=== PATIENT | male | born 1965 | race Caucasian/White ===

== ENCOUNTER → 2017-07-24 | Outpatient (CLI) | payer OTHER ==
[2017-07-24 13:33] LABS: HCT 48.3 % (39.0-53.0); HGB 16.3 gm/dL (13.0-17.5); MCH 29.7 pg (25.0-35.0); MCHC 33.8 g/dL (31.0-37.0); MCV 87.9 fL (80.0-100.0); Mean Platelet Volume 7.6; Platelet Count 211 k/uL (150-450); RDW 13.6 % (11.5-15.5); WBC 3.9 k/uL (3.8-10.6)
[2017-07-24 13:43] LABS: ALT 39 U/L (21-72); AST 21 U/L (17-59); Albumin 4.3 g/dL (3.5-5.0); Alkaline Phosphatase 53 U/L (38-126); Anion Gap 10 mmol/L; Blood Urea Nitrogen 17 mg/dL (9-20); Calcium 9.5 mg/dL (8.4-10.2); Carbon Dioxide 28 mmol/L (22-30); Chloride 102 mmol/L (98-107); Glucose 94 mg/dL (74-99); Potassium 4.5 mmol/L (3.5-5.1); Sodium 140 mmol/L (137-145); Total Bilirubin 0.8 mg/dL (0.2-1.3)
[2017-07-24 13:56] LABS: INR 1.1 (<1.2); Partial Thromboplastin Time 25.1 sec (22.0-30.0); Prothrombin Time 10.6 sec (9.0-12.0)
[2017-07-24 13:58] LABS: Appearance,Urine Clear (Clear); Bilirubin,Urine Negative (Negative); Blood,Urine Negative (Negative); Color,Urine Yellow; Glucose,Urine (UA) Negative (Negative); Ketones,Urine Negative (Negative); Leukocyte Esterase,Urine Trace (Negative); Mucus,Urine Rare /hpf; Nitrite,Urine Negative (Negative); Protein,Urine Trace (Negative); RBC,Urine 5 /hpf (0-5); Specific Gravity,Urine 1.017 (1.001-1.035); Urobilinogen,Urine <2.0 mg/dL (<2.0); WBC,Urine 11 /hpf (0-5)
== END | disposition home or self-care (01) ==
LOC: LABPAT 12:44
PROVIDERS: ATTEND Orthopaedic Surgery Sports Medicine
DX: Z01.818 Encounter for other preprocedural examination (principal); Z01.812 Encounter for preprocedural laboratory examination; M17.11 Unilateral primary osteoarthritis, right knee; R00.1 Bradycardia, unspecified
CPT/HCPCS: 36415; 80053; 81001; 85027; 85610; 85730; 87070; 93005

== ENCOUNTER 2017-08-06 11:47 | Inpatient (IN) | payer OTHER ==
[2017-07-31 10:42] VITALS: BMI 25.5
[~2017-08-06 11:47] MED LIST: ACETAMINOPHEN TAB 500 MG TAB PO ONE; DEXAMETHASONE SOD PHOSPHATE 10 MG/ML 1 ML VIAL IV ONE; HYDROmorphone 0.5 MG/0.5 ML SYRINGE IVP PRN; LIDOCAINE 1% 20 ML VIAL (10MG/ML) FOR IV START INTRADERMA PRN; MELOXICAM 7.5 MG TAB PO ONE; ONDANSETRON 4 MG/2 ML VIAL IVP ONE; ONDANSETRON 4 MG/2 ML VIAL IVP PRN; SCOPOLAMINE 1.5MG/72HR PATCH TRANSDERM ONE; TRANEXAMIC ACID 1,000 MG in SODIUM CHLORIDE 0.9% 50 ML IVPB ONE; ceFAZolin IN SWFI 2 GM/20 ML SYRINGE IVP ONE
[2017-08-06] MEDS: LACTATED RINGERS 1,000 ML IV SCH ×4 (13:31→21:05)
[2017-08-06] MEDS ORDERED: LIDOCAINE 1% 20 ML VIAL (10MG/ML) FOR IV START INTRADERMA ONE (13:31)
[2017-08-06] MEDS ORDERED: PROPOFOL 10 MG/ML 20 ML VIAL IV ONE (14:33)
[2017-08-06] MEDS ORDERED: MIDAZOLAM 2 MG/2 ML VIAL ONE (14:33)
[2017-08-06] MEDS ORDERED: LIDOCAINE 1% INJ 10MG/ML (20 ML MDV) ONE (14:33)
[2017-08-06] MEDS ORDERED: ceFAZolin 3,000 MG in SODIUM CHLORIDE 0.9% IRRIGATIO 3,000 ML IRRIGATION ONE (14:33)
[2017-08-06] MEDS ORDERED: fentaNYL (PF) 50 MCG/ML 2 ML AMP ONE (14:33)
[2017-08-06] MEDS ORDERED: TRANEXAMIC ACID 1,000 MG/10 ML VIAL ONE (14:33)
[2017-08-06] MEDS ORDERED: SODIUM CHLORIDE 0.9% 100 ML BAG ONE (14:33)
[2017-08-06] MEDS: ROPIVACAINE 246.25 MG, EPINEPHrine 0.5 MG, KETOROLAC 30 MG, cloNIDine HCL/PF 80 MCG, WA... MISCELLANE ONE ×10 (15:01→15:35)
[2017-08-06] MEDS ORDERED: LACTATED RINGERS 1,000 ML IV ONE (15:05)
[2017-08-06] MEDS ORDERED: MORPHINE SULFATE 2 MG/ML SYRINGE IVP PRN (16:26)
[2017-08-06] MEDS ORDERED: diphenhydrAMINE 50 MG/ML 1 ML VIAL IVP PRN (16:26)
[2017-08-06] MEDS ORDERED: NALBUPHINE 10 MG/ML AMPUL IV PRN (16:26)
[2017-08-06] MEDS ORDERED: NALOXONE 0.4 MG/ML 1 ML VIAL IV PRN (16:26)
[2017-08-06] MEDS ORDERED: PROMETHAZINE INJ 6.25 MG in SODIUM CHLORIDE 0.9% 50 ML IVPB PRN (16:26)
[2017-08-06] MEDS ORDERED: DIAZEPAM 5 MG TAB PO PRN (16:45)
[2017-08-06] MEDS ORDERED: TEMAZEPAM 15 MG CAP PO PRN (16:45)
[2017-08-06] MEDS ORDERED: BISACODYL 10 MG SUPP RECTAL PRN (16:45)
[2017-08-06] MEDS ORDERED: MAGNESIUM HYDROXIDE 2,400 MG/10 ML CUP PO PRN (16:45)
[2017-08-06] MEDS ORDERED: HYDROmorphone 0.5 MG/0.5 ML SYRINGE IVP PRN ×3 (16:45)
[2017-08-06] MEDS ORDERED: ACETAMINOPHEN TAB 325 MG TAB PO PRN (16:45)
[2017-08-06] MEDS ORDERED: NA PHOS,M-B/NA PHOS,DI-BA 133 ML ENEMA RECTAL PRN (16:45)
[2017-08-06] MEDS ORDERED: HYDROcodone/APAP 7.5-325MG 1 EACH TAB PO PRN (16:45)
[2017-08-06] MEDS ORDERED: traMADol 50 MG TAB PO PRN (16:45)
[2017-08-06] MEDS ORDERED: hydrOXYzine PAMOATE 25 MG CAP PO PRN (16:45)
--- NOTE | 2017-08-06 17:26 | XR ---
EXAMINATION TYPE: XR knee limited RT DATE OF EXAM: 08/06/2017 COMPARISON: NONE HISTORY: Postop TECHNIQUE: 2 views FINDINGS: There is a right knee prosthesis. Components appear in anatomic position. IMPRESSION: No complicating process seen.
--- NOTE | 2017-08-06 18:02 | OP ---
OPERATIVE REPORT DATE OF PROCEDURE: 08/06/2017. SURGEON: Lance Jimenez MD. CELL BIOLOGIST: Shahzad RUSSELL. PREOPERATIVE DIAGNOSIS: Right knee osteoarthrosis. POSTOPERATIVE DIAGNOSIS: Right knee osteoarthrosis. OPERATION: Right total knee arthroplasty. ANESTHESIA: Spinal with sedation. ESTIMATED BLOOD LOSS: 100 mL. TOURNIQUET TIME: 56 minutes at 250 mmHg. COMPLICATIONS: None apparent. DRAINS: None. DISPOSITION: Postanesthesia care unit. INDICATIONS: Timur is a very pleasant 52-year-old male with longstanding history of right knee pain. History and physical examination are consistent with advanced right knee osteoarthrosis. He has been through significant nonoperative management up to this point. Further treatment options were discussed and he has decided to go forward with right total knee arthroplasty. The risks of procedure were discussed with him in detail. These risks include, but are not limited to risk of infection, nerve damage, bleeding, pain and risk of deep vein thrombosis which could lead to fatal pulmonary embolism. There is also risk of loosening of the implant which could require revision operation. The patient understands these risks. All of his questions were answered to his satisfaction. An appropriate informed consent was obtained. PROCEDURE: The patient was identified in the preoperative holding area. Surgical site was marked by both the patient myself. He was given 2 g of Ancef IV for prophylactic purposes. He was then transferred to the operative suite, was placed supine on the operative table. Spinal anesthetic was then administered and dosed per the anesthesia department without apparent complication. Examination under anesthesia was then performed. The patient was 2-3 degrees shy of full extension. He had 110 degrees of flexion. The medial collateral ligament, lateral collateral ligament and posterior cruciate ligaments were stable. Tourniquet was then placed high on the right upper thigh well-padded in preparation for surgery. The patient's right lower extremity was then prepped and draped in usual sterile fashion. Standard surgical pause undertaken to ensure that we were operating the correct site and that appropriate preop antibiotics were given. All staff in the room were in agreement and we proceeded. The outlines of the patella were marked surgical pen. A planned 12 cm vertical incision centered over the patella was marked surgical pen. Leg was then exsanguinated with an Esmarch dressing. The knee was then flexed and the tourniquet was inflated to 250 mmHg. The total tourniquet time for the procedure was 56 minutes at 250 mmHg. The incision was then made with a 10 blade scalpel. Dissection was carried down sharply overlying fascia. Great care was taken to minimize the skin flaps. The knee was then exposed using a standard medial parapatellar approach. A small cuff of quadriceps tendon was left for suturing. He was in a bit of varus preoperatively. A standard medial release was then made. Superficial medial collateral ligament was dissected off the bone around the posterior aspect of the proximal tibia. The medial meniscus was then excised as well. The lateral meniscus was also released anteriorly. The leg was then externally rotated. The patella was everted. The knee was flexed. The retractors were then placed to protect the collateral ligaments. I then proceeded to remove the infrapatellar fat pad. This was excised sharply tangentially with the fibers of the patellar tendon. I then proceeded to remove the peripheral osteophytes. This was done with a rongeur. I then proceed with the distal femoral resection. He did have near full extension. A planned 9 mm resection was then done. The femoral canal was then entered in the midline of the femur approximately 10 mm anterior to the origin of the posterior cruciate ligament. The isabelle was then advanced down the center of the femur and placed intramedullary. Based on preop radiographs, the angle between the anatomic and mechanical axis of the femur was approximately 4-5 degrees. The valgus angle of the distal femoral cutting guide was then set at 4 degrees for the right knee. The distal femoral cutting guide was then advanced over the intramedullary isabelle. This was seated firmly against the femur. I then as mentioned planned to take 9 mm off the distal femur. The cutting block was then secured onto the femur with pins. The jig was then removed. The distal femoral cut was made through the slot of the block. The pins were then removed. The distal femoral cut and the cutting block was removed. The accuracy of the distal femoral cuts was checked with 2 flat bars. I then proceed to femoral sizing. Posterior referencing sizing guide was held firmly against the resected distal surface of the femur. Posterior condyles were resting on the posterior plane of the guide. The sizing stylus was then placed onto the anterior femur. The size was measured as a size 11. I then assessed for femoral rotation. Plan was for 3 degrees of external rotation. 3 degrees of external rotation was placed onto the jig. These holes were then marked. I then confirmed the rotation by 3 separate methods. This was done using epicondylar axis as well as Whitesides line and posterior referencing. It was deemed that the external rotation was proper. I then went forward placing the femoral cutting block. This placed over the previously placed pin holes. The Jung wing was then placed onto the anterior slots to ensure that we would not notch the anterior femur with the anterior femoral cut. I then proceeded with the anterior femoral cut. This was flush with the anterior cortex of the femur. The posterior cuts were then made followed by the anterior chamfer cut, then the posterior chamfer cut. The cutting block was then removed. Throughout the resection, the collateral ligaments were protected with retractors. I then placed a trial size 11 femur. It fit very nice medial-lateral and fit flush with the distal end of the femur. The drill holes were then made. I then proceeded with the tibial cut. Planned for cruciate retaining knee. The guide was placed and set for varus valgus and for slope. The height was set for approximate 2 mm resection from the medial tibial plateau which was the lower side. I was happy with the alignment and the amount of resection. The cutting block was then pinned to the proximal tibia. The alignment isabelle was removed. The proximal tibia was resected with a reciprocating saw. Again this was done with retractors protecting the collateral ligaments as well as the posterior cruciate ligament. I then proceeded to evaluate the flexion extension gaps. A 10 mm block was placed. The flexion-extension gaps were equal. I then proceeded with resection of posterior osteophytes. Very minimal posterior osteophytes. This was done using a curved osteotome. This resected the posterior osteophytes and posterior capsule stripping was done off the posterior aspect of the femur at that time. The osteophytes were removed. I then proceeded with resection of patella. The thickness of patella was measured using the caliper. The thickness was 22 mm. The thickness of the anticipated patellar dome was taken into account. Resection was then performed and confirmed to be equal in 4 quadrants using a caliper. Approximately 14 mm of bone remained after the resection. A 35 x 9 mm standard patellar trial was then placed. The holes were then drilled. The trial was then placed. I then proceeded with sizing the tibial plate. A size G tibial plate fit very nicely. I then placed trial femur with the tibial tray and patellar button. A 10 mm trial tibial insert was also placed. The components fit very nicely. He had full flexion extension. The extension and flexion gaps were equal and stable to both varus and valgus stress. The patella tracked appropriately. The tibial tray rotation was marked with a Bovie. This was externally rotated properly. I then proceeded with tibial preparation. First drilled the femoral holes and removed femoral component. The tibial tray was then set for proper external rotation as well as mediolateral placement onto the tibia. It was then pinned into place. I then proceeded with punching the keel. I then decided to proceed with cementing of all of our components. The knee was thoroughly irrigated with sterile saline solution via pulse lavage. The lateral geniculate artery was identified and cauterized. All blood was removed from the bone of the tibia femur and patella with pulse lavage. I then proceed with cementing. Two packs of antibiotic bone cement were prepared on the back table by the non morse intercept technician. I then proceed with cementing the tibia first. The cement was impacted into the keel as well as deeply seated in the bone. A 2nd coat of cement was then placed. The tibia was then impacted into place. Excess cement was removed with Shanique's and jokers. I then proceed with cementing the femoral component. Femoral component was also cemented using standard technique. Excess cement was removed. A 10 mm trial insert was then placed into the knee. It was brought into full extension with a constant axial load placed until the cement hardened. The patellar component was then cemented. This was held firmly with a compressive device until the cement had dried. When the cement dried, the knee was taken out of extension. All excess cement was removed from around the prosthesis. I then trialed the knee with a 10 mm insert. The flexion-extension gaps were appropriate. The knee was stable. It came into full extension. I decided to go forward with a 10 mm cross-linked cruciate-retaining tibial insert. Polyethylene was then placed on the tibial tray and locked. The knee was reduced. The knee was again further irrigated with sterile saline solution with antibiotic added. The tourniquet was then deflated. Total tourniquet time for the procedure was 56 minutes at 250 mmHg. The final components were Sade persona size 11 cruciate- retaining femoral component, a size G tibial tray, a 10 mm cruciate retaining polyethylene insert and a 35 x 9 mm patella. I then proceeded with closure. Again, the knee was thoroughly irrigated. The quadriceps tendon and the medial retinaculum were reapproximated with #2 Ethibond suture. The extensor mechanism was then closed with a running #2 Quill suture. Subcutaneous tissue was then closed with 2-0 Vicryl interrupted suture. The skin was closed with a running 3-0 Quill suture. Dermabond was applied to the incision. Sterile compressive dressing was then applied. All sponge, needle counts were deemed correct prior to closure. The patient tolerated the procedure without apparent complication. He was transferred to recovery room in stable condition. MMODL / IJN: [id number] /
[2017-08-06] MEDS ORDERED: traZODone HCL 50 MG TAB PO SCH (21:00)
[2017-08-06] MEDS ORDERED: SENNOSIDES-DOCUSATE SODIUM 1 EACH TAB PO SCH (21:00)
[2017-08-06] MEDS: GABAPENTIN 400 MG CAP PO SCH (21:05)
[2017-08-06] MEDS: FAMOTIDINE 20 MG TAB PO SCH (21:05)
[2017-08-06] MEDS: ASPIRIN 325 MG TAB PO SCH (21:06)
[2017-08-06] MEDS: ceFAZolin IN SWFI 2 GM/20 ML SYRINGE IVP SCH (23:36)
[2017-08-07 07:46] LABS: Basophils % (A) 0 %; Eosinophils # (A) 0.1 k/uL (0-0.7); Eosinophils % (A) 1 %; HCT 38.2 % (39.0-53.0); Lymphocytes # (A) 0.9 k/uL (1.0-4.8); Lymphocytes % (A) 11 %; MCH 29.6 pg (25.0-35.0); MCHC 33.3 g/dL (31.0-37.0); Mean Platelet Volume 7.5; Monocytes # (A) 0.5 k/uL (0-1.0); Monocytes % (A) 7 %; Neutrophils # (A) 6.4 k/uL (1.3-7.7); Neutrophils % (A) 80 %; Platelet Count 182 k/uL (150-450); RBC 4.29 m/uL (4.30-5.90); RDW 12.6 % (11.5-15.5)
[2017-08-07 07:48] LABS: HGB 12.7 gm/dL (13.0-17.5)
[2017-08-07] MEDS: HYDROcodone/APAP 7.5-325MG 1 EACH TAB PO PRN ×2 (08:20→14:17)
[2017-08-07] MEDS: ASPIRIN 325 MG TAB PO SCH (08:22)
[2017-08-07] MEDS: FAMOTIDINE 20 MG TAB PO SCH (08:22)
[2017-08-07] MEDS: GABAPENTIN 400 MG CAP PO SCH (08:23)
--- NOTE | 2017-08-07 08:33 | P.PN ---
Subjective Progress Note Date: 08/07/17 Principal diagnosis: Primary osteoarthritis right knee. Status post total right knee arthroplasty. This is a 52-year-old male who is status post total right knee arthroplasty. He has had difficulty voiding since surgery. He was straight cathed last evening for total of 750 ml. He did have a Duramorph spinal. He has not yet been up with physical therapy. He states that he is having minimal pain today. Objective - Vital Signs Vital signs: Vital Signs Temp 98.4 F 08/07/17 01:47 Pulse 100 08/07/17 01:47 Resp 18 08/07/17 05:00 BP 121/66 08/07/17 01:47 Pulse Ox 95 08/07/17 01:47 Intake & Output 08/06/17 08/07/17 08/07/17 18:59 06:59 18:59 Intake Total 1601 1950 Output Total 100 550 Balance 1501 1400 Weight 95.254 kg Intake: IV 1601 Intake, IV Titration 1150 Amount Lactated Ringers 1,000 ml 1150 @ 100 mls/hr IV .Q10H [facility] Rx#:[id number] Oral 800 Output: Urine 550 Straight 550 Estimated Blood Loss 100 Other: # Voids 500 - Exam This is a pleasant 52-year-old male in no acute distress. He is alert and oriented 3. Exam of the lower extremities reveals that his dressing is clean, dry and intact. He has full foot and ankle motion without difficulty or pain. There is no calf pain with palpation. Neurovascular status to the right lower extremity is intact. - Labs CBC & Chem 7: 08/07/17 06:41 Labs: Abnormal Lab Results - Last 24 Hours (Table) 08/07/17 Range/Units 06:41 RBC 4.29 L (4.30-5.90) m/uL Hgb 12.7 L D (13.0-17.5) gm/dL Hct 38.2 L (39.0-53.0) % Lymphocytes # 0.9 L (1.0-4.8) k/uL Assessment and Plan (1) Osteoarthritis of right knee Current Visit: Yes Status: Acute Code(s): M17.11 - UNILATERAL PRIMARY OSTEOARTHRITIS, RIGHT KNEE SNOMED Code(s): 312209124177278 (2) History of total right knee replacement Current Visit: Yes Status: Acute Code(s): Z96.651 - PRESENCE OF RIGHT ARTIFICIAL KNEE JOINT SNOMED Code(s): 5929678673792 Plan: The clinical findings are discussed with the patient. I have encouraged fluids. We're planning discharge to home tomorrow if patient is able to void on his own.
[2017-08-07] MEDS ORDERED: LORATADINE 10 MG TAB PO SCH (09:00)
[2017-08-07] MEDS ORDERED: FLUTICASONE 50MCG/SPRAY NASAL 16GM EA NOSTRIL SCH (09:00)
--- NOTE | 2017-08-07 09:08 | P.PN ---
Progress Note - Text Progress Note Date: 08/07/17 08/07/2017 at 06:47 am 52 yo male, s/p Right total knee arthroplasty. Post-op day #1. Patient received intrathecal Duramorph. Patient was seen today, sitting up in bed no complaints, pain VAS score 0/10, no headache, no itching, no nausea and vomiting. Assessment and plan: Doing well in general no complications from anesthesia.
[2017-08-07 09:15] VITALS: BP 114/69; PULSE 74; RESP 16; TEMP 97.6
--- NOTE | 2017-08-07 10:11 | P.CONS ---
History of Present Illness - Reason for Consult Medical clearance - History of Present Illness Present 52-year-old woman admitted for right knee arthroplasty sepsis and underwent surgery clinically doing well denied any fever, chills, nausea, vomiting, abdominal pain patient did not urinate patient has an opiate patches op and also multiple opiates for pain which she is probably contributing to his urinary retention patient up as gas did not move his bowel no other complaints today. Review of Systems REVIEW OF SYSTEMS: CONSTITUTIONAL: No fever, no malaise, no fatigue. HEENT: No recent visual problems or hearing problems. Denied any sore throat. CARDIOVASCULAR: No chest pain, orthopnea, PND, no palpitations, no syncope. PULMONARY: No shortness of breath, no cough, no hemoptysis. GASTROINTESTINAL: No diarrhea, no nausea, no vomiting, no abdominal pain. Normoactive bowel sounds. NEUROLOGICAL: No headaches, no weakness, no numbness. HEMATOLOGICAL: Denies any bleeding or petechiae. GENITOURINARY: Denies any burning micturition, frequency, or urgency. MUSCULOSKELETAL/RHEUMATOLOGICAL: Denies any joint pain, swelling, or any muscle pain. ENDOCRINE: Denies any polyuria or polydipsia. The rest of the 14-point review of systems is negative. Past Medical History Past Medical History: Osteoarthritis (OA) Additional Past Medical History / Comment(s): complications from wearing pneumatic compression sleeves in past-caused foot drop temporarily for a month, hx. kidney stones, hx. ulcer History of Any Multi-Drug Resistant Organisms: None Reported Past Surgical History: Orthopedic Surgery Additional Past Surgical History / Comment(s): 6 surg. left elbow w/titanium implant, ulnar nerve transposition left wrist, arthroscopy knee x2, EGD Past Anesthesia/Blood Transfusion Reactions: No Reported Reaction Additional Psychological History / Comment(s): mild Tourettes Smoking Status: Never smoker Past Alcohol Use History: Rare Past Drug Use History: None Reported - Past Family History Father Family Medical History: Cancer Medications and Allergies Home Medications Medication Instructions Recorded Confirmed Type Cetirizine HCl [Zyrtec] 10 mg PO DAILY 07/31/17 08/06/17 History Fluticasone Nasal Needles [Flonase 2 spr EA NOSTRIL DAILY 07/31/17 08/06/17 History Nasal Needles] Gabapentin [Neurontin] 800 mg PO BID 07/31/17 08/06/17 History Ibuprofen [Motrin] 800 mg PO Q6H PRN 07/31/17 08/06/17 History traZODone HCL 50 mg PO HS 07/31/17 08/06/17 History Aspirin 325 mg PO BID #120 tab 08/07/17 Rx HYDROcodone/APAP 7.5-325MG [Kent 1 - 2 tab PO Q4-6H PRN #90 tab 08/07/17 Rx 7.5-325] Sennosides-Docusate Sodium 1 tab PO BID #60 tablet 08/07/17 Rx [Senokot-S] Allergies Allergy/AdvReac Type Severity Reaction Status Date / Time oxycodone AdvReac severe Verified 08/06/17 17:47 itching Physical Exam Vitals: Vital Signs Temp Pulse Pulse Resp BP Pulse Ox 08/07/17 07:00 97.6 F 74 16 114/69 95 08/07/17 05:00 18 08/07/17 03:00 18 08/07/17 01:47 98.4 F 100 19 121/66 95 08/07/17 01:00 18 98 08/06/17 23:00 18 08/06/17 21:26 98 08/06/17 21:06 98.9 F 67 17 119/62 95 08/06/17 21:00 18 08/06/17 19:26 18 08/06/17 17:46 16 08/06/17 17:40 16 97 08/06/17 17:15 52 L 18 99/68 98 08/06/17 17:00 56 L 16 97/62 100 08/06/17 16:43 97.8 F 71 14 102/62 100 08/06/17 13:01 98.2 F 73 18 129/81 95 Intake and Output 08/06/17 08/07/17 08/07/17 22:59 06:59 14:59 Intake Total 1450 1100 Output Total 100 550 Balance 1350 550 Intake: IV 600 Intake, IV Titration 350 800 Amount Lactated Ringers 1,000 ml 350 800 @ 100 mls/hr IV .Q10H [facility] Rx#:[id number] Oral 500 300 Output: Urine 550 Straight 550 Estimated Blood Loss 100 Other: # Voids 500 Weight 95.254 kg PHYSICAL EXAMINATION: GENERAL: The patient is alert and oriented x3, not in any acute distress. Well developed, well nourished. HEENT: Pupils are round and equally reacting to light. EOMI. No scleral icterus. No conjunctival pallor. Normocephalic, atraumatic. No pharyngeal erythema. No thyromegaly. CARDIOVASCULAR: S1 and S2 present. No murmurs, rubs, or gallops. PULMONARY: Chest is clear to auscultation, no wheezing or crackles. ABDOMEN: Soft, nontender, nondistended, normoactive bowel sounds. No palpable organomegaly. MUSCULOSKELETAL: Deferred to orthopedic surgery EXTREMITIES: No cyanosis, clubbing, or pedal edema. NEUROLOGICAL: Gross neurological examination did not reveal any focal deficits. SKIN: No rashes. Results CBC & Chem 7: 08/07/17 06:41 Labs: Abnormal Lab Results - Last 24 Hours (Table) 08/07/17 Range/Units 06:41 RBC 4.29 L (4.30-5.90) m/uL Hgb 12.7 L D (13.0-17.5) gm/dL Hct 38.2 L (39.0-53.0) % Lymphocytes # 0.9 L (1.0-4.8) k/uL Assessment and Plan Plan: -Right total knee arthroplasty: Postoperatively patient has urinary retention probably due to opiates. Pain management and due to prophylaxis as per primary service -Urinary retention: Due to above-mentioned reasons -Primary osteoarthritis. Patient doesn't have any significant medical problems recommend to cut down opiate analogies here in the patient is able to urinate probably can be discharged from medical perspective
[2017-08-07] MEDS ORDERED: MULTIVITAMINS, THERA 1 EACH TAB PO SCH (12:00)
[2017-08-07] MEDS: ceFAZolin IN SWFI 2 GM/20 ML SYRINGE IVP SCH (17:46)
== END 2017-08-07 15:30 | disposition home health service (06) | DRG 470 ==
LOC: 2ORMAIN 12:43 → 3SUR 16:31
PROVIDERS: ADMIT Orthopaedic Surgery Sports Medicine; ATTEND Orthopaedic Surgery Sports Medicine
PROC: 0SRC0J9 Replacement of Right Knee Joint with Synthetic Substitute, Cemented, Open Approach (ICD-10-PCS; principal; 2017-08-06 14:35)
DX: M17.11 Unilateral primary osteoarthritis, right knee (principal); F95.2 Tourette's disorder; M25.761 Osteophyte, right knee; Z79.1 Long term (current) use of non-steroidal anti-inflammatories (NSAID); Z79.899 Other long term (current) drug therapy; Z88.6 Allergy status to analgesic agent; Z82.49 Family history of ischemic heart disease and other diseases of the circulatory system; Z87.442 Personal history of urinary calculi; Z79.891 Long term (current) use of opiate analgesic; Z79.82 Long term (current) use of aspirin
CPT/HCPCS: 85025; 88300